=== PATIENT | female | born 1955 | race Two or more races ===

== ENCOUNTER 2024-10-12 06:33 | Day surgery (SDC) | payer OTHER ==
[2024-10-06 11:03] VITALS: BP 129/81
[2024-10-06 11:25] LABS: BASO % 0.4 % (0.1-1.2); EOS # 0.03 (0.04-0.54); EOS % 0.5 % (0.7-7.0); HEMATOCRIT 40.6 % (34.1-44.9); HEMOGLOBIN 13.1 g/dL (11.2-15.7); LYMPH # 2.11 (1.18-3.74); LYMPH % 37.1 % (19.3-53.1); MEAN CORPUSCULAR HEMOGLOBIN 28.3 pg (25.6-32.2); MONO # 0.47 (0.24-0.82); MONO % 8.3 % (4.7-12.5); NEUT # 3.04 (1.56-6.13); NEUT % 53.5 % (34.0-71.1); PLATELET COUNT 243 K/uL (163-369); RED BLOOD COUNT 4.63 M/uL (3.93-5.22); RED CELL DISTRIBUTION WIDTH 13.6 % (11.6-14.4)
[2024-10-06 11:33] LABS: PH,URINE 5.5 (5.0-8.0); URINE APPEARANCE Cloudy; URINE BILIRRUBIN Negative (NEGATIVE); URINE BLOOD Negative; URINE COLOR Yellow; URINE GLUCOSE Negative (NEGATIVE); URINE KETONE Negative (NEGATIVE); URINE LEUKOCYTE Small; URINE NITRATE Negative; URINE PROTEIN Negative (NEGATIVE); URINE UROBILINOGEN 0.2 E.U./dl
[2024-10-06 11:37] LABS: URINE BACTERIA 922.8 uL (0.0-1933); URINE EPITHELIAL CELLS 18.8 uL (0.0-38.8); URINE RBC 13.1 uL (0.0-20.8); URINE WBC 51.5 uL (0.0-23.2)
[2024-10-06 11:58] LABS: URINE CAST 0.44 uL (0.0-1.40); URINE CRYSTALS FEW /HPF; URINE MUCUS SCANT
[2024-10-06 12:44] LABS: ALBUMIN 4.1 gm/dL (3.4-5.0); BILIRUBIN TOTAL 0.45 mg/dL (0.3-1.2); CALCIUM 10.9 mg/dL (8.5-10.1); CREATININE SERUM 0.86 mg/dL (0.55-1.02); GFR 65.42; GLOBULINA 3.2 G/DL (2.4-3.5); POTASSIUM 4.86 mEq/L (3.5-5.1); TOTAL PROTEIN 7.3 gm/dL (6.4-8.2)
[~2024-10-12] VITALS: Ht 172.7 cm; Wt 67.1 kg
[~2024-10-12 06:33] MED LIST: LASIX20 MG PO; LOSARTAN POTASS50 MG PO; SYNTHROID50 MCG PO
[2024-10-12] MEDS ORDERED: DEXAMETHASONE SODIUM PHOSPHATE 4 MG/ML VIAL IV ONE (13:45)
== END 2024-10-12 17:00 | disposition home or self-care (01) ==
LOC: CIR.AMB 06:33
PROVIDERS: ATTEND Surgery
DX: E21.0 Primary hyperparathyroidism (principal)